=== PATIENT | male | born 1940 | race Caucasian/White ===

== ENCOUNTER 2020-03-20 03:05 | Emergency (ER) | payer MEDICARE, BC ==
[2020-03-20] MEDS ORDERED: Sodium Chloride 0.9% 10 ML Syringe FLUSH PRN (03:15)
--- NOTE | 2020-03-20 03:21 | EDM.PDOC ---
ED HPI GENERAL MEDICAL PROBLEM - General Chief Complaint: Neuro Symptoms/Deficits Stated Complaint: MEDICAL [facility] Time Seen by Provider: 03/20/20 03:10 Source of Information: Reports: Patient, EMS History Limitations: Reports: Other (no old records) - History of Present Illness INITIAL COMMENTS - FREE TEXT/NARRATIVE: 80 yo male went to bed at 2230h, awoke about 0230h to go to the bathroom and fell getting out of bed. Noticed then also L arm weakness. No prior hx of CVA. Is on ASA, no other blood thinners. Lives with his . Has a TOM now and has had one for a couple days. Does have a pHx of infrequent migraines. Onset: Sudden Onset Date: 03/20/20 Onset Time: 02:15 (this is when he became aware.) Duration: Hour(s):, Constant Location: Reports: Upper Extremity, Right Quality: Reports: Other (pain not reported.) Severity: Moderate Improves with: Reports: None Worsens with: Reports: Other (unknown) Context: Reports: Other (See HPI) Associated Symptoms: Reports: Headaches, Weakness (L arm). Denies: Fever/Chills , Seizure, Syncope Treatments WHITE HAT H[employer]ER: Reports: Other (see below) (none) Headache Pain Score (Numeric/FACES): 1 - Related Data Allergies Allergy/AdvReac Type Severity Reaction Status Date / Time sodium pentobarbital Allergy Other Uncoded 03/20/20 03:21 Home Meds: Home Meds Aspirin [Erskine Aspirin] 1 tab PO DAILY 03/20/20 [History] Losartan Potassium 25 mg PO DAILY 03/20/20 [History] Multivit with Iron,Minerals [Complete Senior] 1 tab PO DAILY 03/20/20 [History] Omeprazole Magnesium [Prilosec Otc] 20 mg PO DAILY 03/20/20 [History] Tamsulosin HCl 1 tab PO DAILY 03/20/20 [History] metFORMIN [Glucophage XR] 2 tab PO BID 03/20/20 [History] ED ROS GENERAL - Review of Systems Review Of Systems: See Below Constitutional: Reports: No Symptoms HEENT: Reports: No Symptoms Respiratory: Reports: No Symptoms Cardiovascular: Reports: No Symptoms GI/Abdominal: Reports: No Symptoms : Reports: No Symptoms Musculoskeletal: Reports: No Symptoms Skin: Reports: No Symptoms Neurological: Reports: Headache (past few days), Weakness (L arm) Psychiatric: Reports: No Symptoms ED EXAM, NEURO - Physical Exam Exam: See Below Exam Limited By: No Limitations General Appearance: Alert, WD/WN, No Apparent Distress Eye Exam: Bilateral Eye: EOMI, Normal Inspection, PERRL Ears: Normal External Exam, Normal Canal, Hearing Grossly Normal Nose: Normal Inspection, No Blood Throat/Mouth: Normal Inspection, Normal Lips, Normal Oropharynx, Normal Voice, No Airway Compromise Head Exam: Atraumatic, Normocephalic Neck: Normal Inspection Respiratory/Chest: No Respiratory Distress, Lungs Clear, Normal Breath Sounds, No Accessory Muscle Use Cardiovascular: Regular Rate, Rhythm, No Edema GI/Abdominal: Normal Bowel Sounds, Soft, Non-Tender, No Distention Neurological: Alert, Normal Mood/Affect, CN II-XII Intact, Oriented x 3, Difficulty Walking, Other (L arm weakness, stroke scale 2 for this weakness only ) Extremities: Normal Inspection, Normal Range of Motion, Non-Tender, No Pedal Edema Psychiatric: Normal Affect, Normal Mood Skin Exam: Warm, Dry, Intact, Normal Color, No Rash Course - Vital Signs Text/Narrative:: [facility] Stroke neurologist, Dr. Bridges called @ 3483 Last Recorded V/S: Last Vital Signs Temp 35.8 C L 03/20/20 03:32 Pulse 71 03/20/20 04:16 Resp 17 03/20/20 04:16 BP 194/92 H 03/20/20 04:16 Pulse Ox 93 L 03/20/20 04:16 - Orders/Labs/Meds Orders: Active Orders 24 hr Category Date Time Status Cardiac Monitoring [RC] .As Directed Care 03/20/20 03:14 Active UA W/MICROSCOPIC [URIN] Stat Lab 03/20/20 03:15 Ordered Lactated Ringers [Ringers, Lactated] 1,000 ml Med 03/20/20 04:30 Active IV ASDIRECTED Losartan [Cozaar] Med 03/20/20 03:45 Active 25 mg PO BID Sodium Chloride 0.9% [Saline Flush] Med 03/20/20 03:15 Active 10 ml FLUSH ASDIRECTED PRN Saline Lock Insert [OM.PC] Routine Oth 03/20/20 03:15 Ordered Medication Orders Lactated Ringer's (Ringers, Lactated) 1,000 mls @ 150 mls/hr IV ASDIRECTED AG Losartan Potassium (Cozaar) 25 mg PO BID AG Last Admin: 03/20/20 03:41 Dose: 25 mg Sodium Chloride (Saline Flush) 10 ml FLUSH ASDIRECTED PRN PRN Reason: Keep Vein Open Last Admin: 03/20/20 03:41 Dose: 10 ml Labs: Laboratory Tests 03/20/20 03/20/20 Range/Units 03:15 03:15 WBC 7.4 (4.5-11.0) K/uL RBC 4.94 (4.30-5.90) M/uL Hgb 14.2 (12.0-15.0) g/dL Hct 44.0 (40.0-54.0) % MCV 89 (80-98) fL MCH 29 (27-31) pg MCHC 32 (32-36) % Plt Count 232 (150-400) K/uL Sodium 140 (140-148) mmol/L Potassium 4.4 (3.6-5.2) mmol/L Chloride 102 (100-108) mmol/L Carbon Dioxide 27 (21-32) mmol/L Anion Gap 11.1 (5.0-14.0) mmol/L BUN 27 H (7-18) mg/dL Creatinine 1.7 H (0.8-1.3) mg/dL Est Cr Clr Drug Dosing 31.80 mL/min Estimated GFR (MDRD) 39 L (>60) Glucose 168 H (74-106) mg/dL Calcium 9.7 (8.5-10.1) mg/dL Troponin I 0.021 (0.000-0.056) ng/mL Meds: Medications Generic Name Dose Route Start Last Admin Trade Name Freq PRN Reason Stop Dose Admin Lactated Ringer's 1,000 mls @ 150 mls/hr 03/20/20 04:30 Ringers, Lactated IV ASDIRECTED AG Losartan Potassium 25 mg 03/20/20 03:45 03/20/20 03:41 Cozaar PO 25 mg BID AG Administration Sodium Chloride 10 ml 03/20/20 03:15 03/20/20 03:41 Saline Flush FLUSH 10 ml ASDIRECTED PRN Administration Keep Vein Open Discontinued Medications Generic Name Dose Route Start Last Admin Trade Name Freq PRN Reason Stop Dose Admin Diphenhydramine HCl 25 mg 03/20/20 04:19 Benadryl IVPUSH 03/20/20 04:20 ONETIME ONE Ondansetron HCl 4 mg 03/20/20 03:35 03/20/20 03:41 Zofran IVPUSH 03/20/20 03:36 4 mg ONETIME ONE Administration Prochlorperazine Edisylate 10 mg 03/20/20 04:19 Compazine IVPUSH 03/20/20 04:20 ONETIME ONE - Radiology Interpretation Free Text/Narrative:: Head CT scan- IMPRESSION: 1. No intracranial bleed or mass effect. 2. Nonspecific white matter disease, likely microangiopathy. 3. 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 Please note that all CT scans at this facility use dose modulation, iterative reconstruction, and/or weight-based dosing when appropriate to reduce radiation dose to as low as reasonably achievable. Dictated by Broderick Sorenson MD @ Mar 20 2020 4:09AM CT Results Date: 03/20/20 CT Results Time: 04:15 Departure - Departure Time of Disposition: 04:45 Disposition: DC/Tfer to Acute Hospital 02 Condition: Serious Clinical Impression: CVA (cerebral vascular accident) Qualifiers: CVA mechanism: unspecified Qualified Code(s): I63.9 - Cerebral infarction, unspecified HTN (hypertension) Qualifiers: Hypertension type: unspecified Qualified Code(s): I10 - Essential (primary) hypertension - Discharge Information *PRESCRIPTION DRUG MONITORING PROGRAM REVIEWED*: Not Applicable *COPY OF PRESCRIPTION DRUG MONITORING REPORT IN PATIENT SKYLER: Not Applicable Referrals: PCP,None [Ordering Only Provider] - Forms: ED Department Discharge Sepsis Event Note - Focused Exam Vital Signs: Vital Signs Temp Pulse Resp BP BP Pulse Ox 03/20/20 04:16 71 17 194/92 H 93 L 03/20/20 03:45 68 19 176/89 H 94 L 03/20/20 03:41 195/109 H 03/20/20 03:32 35.8 C L 78 18 176/100 H 03/20/20 03:10 35.8 C L 74 16 178/100 H 96 Date Exam was Performed: 03/20/20 Time Exam was Performed: 04:23 - My Orders Last 24 Hours: My Active Orders 03/20/20 03:14 Cardiac Monitoring [RC] .As Directed 03/20/20 03:15 UA W/MICROSCOPIC [URIN] Stat Sodium Chloride 0.9% [Saline Flush] 10 ml FLUSH ASDIRECTED PRN Saline Lock Insert [OM.PC] Routine 03/20/20 03:45 Losartan [Cozaar] 25 mg PO BID 03/20/20 04:30 Lactated Ringers [Ringers, Lactated] 1,000 ml IV ASDIRECTED - Assessment/Plan Last 24 Hours: My Active Orders 03/20/20 03:14 Cardiac Monitoring [RC] .As Directed 03/20/20 03:15 UA W/MICROSCOPIC [URIN] Stat Sodium Chloride 0.9% [Saline Flush] 10 ml FLUSH ASDIRECTED PRN Saline Lock Insert [OM.PC] Routine 03/20/20 03:45 Losartan [Cozaar] 25 mg PO BID 03/20/20 04:30 Lactated Ringers [Ringers, Lactated] 1,000 ml IV ASDIRECTED
[2020-03-20] MEDS ORDERED: Ondansetron 4 MG/2 ML SDV IVPUSH ONE (03:35)
[2020-03-20] MEDS ORDERED: Losartan 25 MG Tab PO SCH (03:45)
--- NOTE | 2020-03-20 04:16 | CRLCT ---
INDICATION: CVA TECHNIQUE: CT head without contrast. COMPARISON: None. FINDINGS: CSF spaces: Within normal limits for age. Brain parenchyma: No intracranial bleed or mass effect. Moderate low density in the deep white matter with preserved jimenez-white differentiation. Old lacunar infarction head left caudate nucleus. Skull base and calvarium: The visualized paranasal sinuses and mastoid air cells demonstrate no acute or significant findings. The visualized orbits are grossly unremarkable. No skull fractures. IMPRESSION: 1. No intracranial bleed or mass effect. 2. Nonspecific white matter disease, likely microangiopathy. 3. 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 Please note that all CT scans at this facility use dose modulation, iterative reconstruction, and/or weight-based dosing when appropriate to reduce radiation dose to as low as reasonably achievable. Dictated by Broderick Sorenson MD @ Mar 20 2020 4:09AM Signed by Dr. Broderick Sorenson @ Mar 20 2020 4:14AM
[2020-03-20] MEDS ORDERED: Prochlorperazine 10 MG/2 ML SDV IVPUSH ONE (04:19)
[2020-03-20] MEDS ORDERED: diphenhydrAMINE 50 MG/ML SDV IVPUSH ONE (04:19)
[2020-03-20] MEDS ORDERED: Lactated Ringers 1,000 ML IV SCH (04:30)
== END 2020-03-20 05:21 ==
LOC: JP.ED 03:05
DX: I63.9 Cerebral infarction, unspecified (principal); I10 Essential (primary) hypertension; Z88.8 Allergy status to other drugs, medicaments and biological substances; Z79.82 Long term (current) use of aspirin; Z79.84 Long term (current) use of oral hypoglycemic drugs; Z79.899 Other long term (current) drug therapy
CPT/HCPCS: 36415; 70450; 80048; 84484; 85027; 96374; 96375; 99285; A9270; J0780; J1200; J2405; J7120